=== PATIENT | male | born 1975 | race Caucasian/White ===

== ENCOUNTER 2023-05-01 13:45 | Inpatient (IN) | payer SELFPAY ==
[2023-05-01 13:45] VITALS: BP 138/100; PULSE 81; RESP 18; TEMP 36.2; O2SAT 96; BMI 28.8
[2023-05-01 15:01] LABS: Absolute Lymphocyte Count 4.09 X10^3/uL (0.83-4.51); Absolute Neutrophil Count 5.4 X10^3/uL (2.0-7.7); Basophil# 0.06 X10^3/uL; Basophil% 0.6 % (0-1); Eosinophil# 0.23 X10^3/uL; Eosinophils% 2.2 % (0-5); Hematocrit 53.2 % (40-54); Lymphocyte # 4.09 X10^3/ul (0.83-4.51); Lymphocyte % 39.3 % (19-41); Mean Corp Hgb Conc 34.2 g/dL (32-36); Mean Corpuscular Hgb 31.5 pg (27.0-32.0); Mean Corpuscular Volume 92.2 fL (80-94); Monocyte# 0.66 X10^3/uL; Monocyte% 6.3 % (0-10); NRBC Flagged by Analyzer 0 % (0-5); Neutrophil # 5.35 X10^3/uL (2.7-7.7); Neutrophil % 51.4 % (47-70); Platelet Count 196 K/mm3 (150-450); RBC Distribution Width CV 11.8 % (11.6-14.6); RBC Distribution Width SD 39.8 fl (35.1-43.9); Red Blood Count 5.77 M/mm3 (4.6-6.2); White Blood Count 10.4 K/mm3 (4.4-11.0)
[2023-05-01 15:09] LABS: Hemoglobin 18.2 g/dL (13.0-16.5)
[2023-05-01 15:10] LABS: Anion Gap 6 (5-15); BUN 16 mg/dL (7-18); BUN/Creat Ratio 17.6 RATIO (10-20); Calcium,Total 9.9 mg/dL (8.5-10.1); Chloride 103 mmol/L (98-107); Creatinine, Serum 0.91 mg/dL (0.70-1.30); EST Glomerular Filtration Rate 95 mL/min (>60); Est Glom Filt Rate - Afr Amer 116 mL/min (>60); Estimated Creatinine Clearance 84.93 ml/min; Glucose 102 mg/dL (74-106); Potassium 4.2 mmol/L (3.5-5.1); Sodium Level 134 mmol/L (136-145)
--- NOTE | 2023-05-01 15:10 | EX.ED.SAOD ---
HPI History of Present Illness Chief Complaint: Substance Abuse Detail of Chief Complaint: Requesting detox from fentanyl Informant: patient Narrative Narrative: Patient presents to the emergency department requesting detox from fentanyl. Patient states that he last used 24 hours ago. Patient states that he normally uses 1-1/2 to 2 g a day. Normally uses via the IV route. Currently complains of a runny nose and some nausea. He is never gone through detox before. He has been using for about a year. Denies recent illness otherwise. PFSH PFSH Allergy/AdvReac Type Severity Reaction Status Date / Time No Known Allergies Allergy Verified 05/01/23 13:46 ROS ROS ED Review of Systems ROS Unobtainable: other Constitutional Constitutional ED: Reports lethargy and other Details: Rhinorrhea ; Denies chills, fever(s), sweats or weight loss Eyes Eyes: Denies blurry vision, change in vision or diplopia ENT ENT ED: Reports rhinorrhea; Denies sore throat Cardiovascular Cardiovascular: Denies chest pain, orthopnea or racing heartbeat Respiratory/Chest Respiratory/Chest: Reports dyspnea and dyspnea on exertion; Denies cough, orthopnea or sputum Gastrointestinal Gastrointestinal: Denies abdominal pain, diarrhea, nausea or vomiting Genitourinary Genitourinary ED: Denies dysuria, hematuria or urinary frequency Musculoskeletal Musculoskeletal: Denies arthralgias, back pain, myalgias or neck pain Integumentary Denies abscess, Abrasions or rash Neurologic Neurologic: Denies headache(s) or weakness Psychiatric Psychiatric: Denies anxiety, depression or suicidal thoughts Endocrine Endocrinology: Denies polydipsia, polyphagia or polyuria Hematologic/Lymphatic Hematologic/Lymphatic: Denies easy bleeding, easy bruising or lymphadenopathy Allergic/Immunologic Allergic/Immunologic ED: Denies mouth swelling, tongue swelling or urticaria EXAM Physical Exam Const Vital Signs: 05/01/23 13:45 Temperature 97.1 F L Temperature Source Temporal Pulse Rate 81 Respiratory Rate 18 Blood Pressure 138/100 H Blood Pressure Mean 112 Pulse Ox 96 Oxygen Delivery Method Room Air Positive well nourished and well developed General Appearance ED: well developed and NAD HEENT Reports TM's clear and moist mucous membranes normocephalic and atraumatic; Negative for trauma or tenderness Tympanic Membrane ED: Yes TM's clear Eyes PERRL and EOMs intact bilaterally General Eye ED: Negative for pale conjunctiva or scleral icterus Neck no lymphadenopathy, supple and no JVD General: Negative for tenderness Chest Wall inspection of chest normal and palpation of chest normal Chest: Negative for tenderness Resp normal respiratory effort and clear to auscultation bilaterally Effort and Inspection: Negative for respiratory distress or pain with movement Auscultation: Negative for rhonchi, wheezes or diminished lung sounds Cardio regular rate, regular rhythm, S1 normal heart sound, S2 normal heart sound and no murmurs Peripheral Pulses: pulses 2+ throughout GI normal to inspection, nondistended, normoactive bowel sounds, soft to palpation, non-tender, non-distended and no masses Back/Spine no CVA tenderness and no thoracic nor lumbar tenderness Extremity normal to inspection General Extremety ED: Negative for edema General Extremity: Negative for edema Neuro oriented x3, CN's II-XII intact bilaterally, no sensory deficits noted and gait normal Sensorium / Orientation: awake, alert, oriented to person, oriented to place and oriented to time Motor Exam: strength 5/5 throughout and strength abnormal Psych mental status grossly normal Skin no rashes or lesions noted and no wounds MDM MDM MDM Narrative Medical decision making narrative: Patient presents requesting detox from fentanyl. Will obtain basic lab work and toxicology screen as well as alcohol screen. Case will be discussed with hospitalist evaluate patient for admission Lab Data Attestation: I reviewed the patient's lab results. Labs: Laboratory Results - last 24 hr 05/01/23 05/01/23 14:45 14:45 WBC 10.4 RBC 5.77 Hgb 18.2 H* Hct 53.2 MCV 92.2 MCH 31.5 MCHC 34.2 RDW Std Deviation 39.8 RDW Coeff of Daron 11.8 Plt Count 196 MPV 9.0 Immature Gran % (Auto) 0.200 Neut % (Auto) 51.4 Lymph % (Auto) 39.3 [place] % (Auto) 6.3 Eos % (Auto) 2.2 Baso % (Auto) 0.6 Absolute Neuts (auto) 5.4 Absolute Lymphs (auto) 4.09 Nucleated RBC % 0 Diff Path Review May foll Ur Drug Screen Comment Discharge Plan Triage Chief Complaint: Substance Abuse ED Provider: Boyd Mike Dx/Rx/DC Orders Clinical Impression: Opiate withdrawal, Desire for detoxification Primary Care Provider: Care Physician,No Primary Referrals: Care Physician,No Primary [Primary Care Provider] - Disposition Disposition: Acute Care Hospital [facility]
--- NOTE | 2023-05-01 15:13 | PCM.HP.STD ---
HPI - General General Date of Admission: 05/01/23 Date of Service: 05/01/23 HPI Narrative SCOOBY HINOJOSA, is a 48 M with a PMH as outlined who presents via the ED on 05/01/2023 for detox from fentanyl. His last use was 24 hours prior to admission. He uses about 1-2 grams daily and normally uses it IV. He complained of nausea and runny nose at time of review. He had no other symptoms and review of systems was otherwise negative. Vitals in the ED were BP of 138/100, SD of 81, RR of 18 and temp of 97.1F. He was saturating at 96% on room air. CBC was significant for hemoglobin of 18.2 but was otherwise normal. Chemistry was also largely unremarkable. Urine tox was pending. He has been admitted to be managed for acute opioid withdrawal. [facility] Medical History no medical history Home Medications NK 05/01/23 [History Last Taken Unknown] Allergy/AdvReac Type Severity Reaction Status Date / Time No Known Allergies Allergy Verified 05/01/23 13:46 Family History no significant family his Social History Smoking Status: Current some day smoker tobacco type: cigarettes ROS Constitutional Constitutional: Denies anorexia, chills, fatigue, fever(s), malaise or weakness Eyes Eyes: Denies change in vision ENT HEENT: Denies dysphagia or headache(s) Cardiovascular Cardiovascular: Denies dyspnea on exertion, edema, lightheadedness, orthopnea, palpitations or rapid heart rate Respiratory/Chest Respiratory/Chest: Reports cough and productive cough; Denies hemoptysis or shortness of breath at rest Gastrointestinal Gastrointestinal: Denies abdominal pain, constipation, diarrhea, dyspepsia, nausea or vomiting Genitourinary Genitourinary: Denies burning urination or dysuria Musculoskeletal Musculoskeletal: Denies arthralgias, joint pain or joint stiffness Neurologic Neurologic: Denies confusion, dizziness, focal weakness, headache(s) or seizures Psychiatric Psychiatric: Denies anxiety or depression Endocrine Endocrinology: Denies change in body appearance Hematologic/Lymphatic Hematologic/Lymphatic: Denies anemia Vital Signs Vital Signs Vital Signs: 05/01/23 13:45 Temperature 97.1 F L Temperature Source Temporal Pulse Rate 81 Respiratory Rate 18 Blood Pressure 138/100 H Blood Pressure Mean 112 Pulse Ox 96 Oxygen Delivery Method Room Air Weight Weight: 168 lb Body Mass Index (BMI) 28.8 Physical Exam Const alert, oriented x3 and no apparent distress General Appearance: cooperative HEENT normocephalic, head/scalp atraumatic, hearing grossly normal bilaterally and moist oral mucous membranes Mouth: oral and palatal mucosa normal Eyes PERRL and EOMs intact bilaterally Neck no lymphadenopathy, supple and no JVD Resp normal respiratory effort, no retractions, no use of accessory muscles and clear to auscultation bilaterally Cardio regular rate, regular rhythm, S1 normal heart sound, S2 normal heart sound and no murmurs GI normal to inspection, nondistended, normoactive bowel sounds, soft to palpation, non-tender and non-distended Extremity normal to inspection, full ROM and no clubbing, cyanosis or edema Neuro oriented x3, CN's II-XII intact bilaterally, moves all extremities and no focal motor deficits Sensorium / Orientation: awake and alert Motor Exam: strength 5/5 throughout Psych affect normal Results Lab / Micro Data Result Diagrams: 05/01/23 14:45 05/01/23 14:45 Labs: Laboratory Results - last 24 hr 05/01/23 14:45: WBC 10.4, RBC 5.77, Hgb 18.2 H*, Hct 53.2, MCV 92.2, MCH 31.5, MCHC 34.2, RDW Std Deviation 39.8, RDW Coeff of Daron 11.8, Plt Count 196, MPV 9.0, Immature Gran % (Auto) 0.200, Neut % (Auto) 51.4, Lymph % (Auto) 39.3, [place] % (Auto) 6.3, Eos % (Auto) 2.2, Baso % (Auto) 0.6, Absolute Neuts (auto) 5.4, Absolute Lymphs (auto) 4.09, Nucleated RBC % 0, Diff Path Review March05/01/23 14:45: Sodium 134 L, Potassium 4.2, Chloride 103, Carbon Dioxide 25.0, Anion Gap 6, BUN 16, Creatinine 0.91, Estim Creat Clear Calc 84.93, Est GFR (MDRD) Af Amer 116, Est GFR (MDRD) Non-Af 95, BUN/Creatinine Ratio 17.6, Glucose 102, Calcium 9.9 05/01/23 14:45: Ur Drug Screen Comment Assessment & Plan Assessment/Plan (1) Opiate withdrawal: PLAN: Plan #Acute opioid withdrawal admit to med surg urine tox pending opioid withdrawal protocol with buprenorphine adjunctive meds for symptomatic relief DVT prophylaxis; low risk, encourage to ambulate Charges/Coding Visit Charges Inpatient E&M: 85923 Init Hosp L3
[2023-05-01 15:16] LABS: Amphetamine Urine VISTA NEGATIVE (<1000 ng/mL); Barbiturate Urine VISTA NEGATIVE (< 200 ng/mL); Benzodiazepine Urine VISTA NEGATIVE (< 200 ng/mL); Cocaine Urine VISTA NEGATIVE (< 300 ng/mL); Ecstacy Urine VISTA NEGATIVE (< 500 ng/mL); Methadone Urine VISTA NEGATIVE (< 300 ng/mL); PCP Urine VISTA NEGATIVE (< 25 ng/mL); THC Urine VISTA NEGATIVE (< 50 ng/mL); Vista UDS pH Range 6
[2023-05-01 15:22] LABS: Alcohol, Blood (Medical)-Serum < 3.0 mg/dL
--- NOTE | 2023-05-01 15:45 | NURSING ---
MED SURG KORAM OPIATE WITHDRAWAL, FENTENYL DETOX
[2023-05-01 16:01] VITALS: BP 145/95; PULSE 75; RESP 18; TEMP 36.5; O2SAT 100
[2023-05-01 17:08] VITALS: RESP 16
[2023-05-01 18:38] VITALS: BMI 27.9
[2023-05-01 18:44] VITALS: BP 142/95; PULSE 72; RESP 16; TEMP 36.8; O2SAT 100
[2023-05-01 19:43] VITALS: BP 119/89; PULSE 66; RESP 16; TEMP 36.5; O2SAT 95
[2023-05-01] MEDS: Buprenorphine HCl 2 MG TAB.SUBL SL (20:00)
[2023-05-01] MEDS: Dicyclomine 10 MG Capsule 20 MG PO (20:01)
[2023-05-01] MEDS: cloNIDine HCl 0.1 MG Tablet PO (20:01)
[2023-05-01] MEDS: Ondansetron 8 MG Tablet PO (20:01)
[2023-05-01] MEDS: hydrOXYzine PAM 25 MG Capsule 50 MG PO (20:01)
[2023-05-01] MEDS: traZODone 100 MG Tablet PO (21:02)
[2023-05-01] MEDS: Methocarbamol 750 MG Tablet 1500 MG PO (21:03)
[2023-05-02 04:35] VITALS: BP 97/64; PULSE 56; RESP 14; TEMP 36.4; O2SAT 92
[2023-05-02] MEDS: Buprenorphine HCl 2 MG TAB.SUBL SL ×3 (04:35→21:25)
[2023-05-02] MEDS: Dicyclomine 10 MG Capsule 20 MG PO ×3 (04:42→18:13)
[2023-05-02] MEDS: Ondansetron 8 MG Tablet PO ×2 (06:57→18:13)
[2023-05-02] MEDS: Gabapentin 300 MG Capsule PO (07:24)
--- NOTE | 2023-05-02 11:13 | ADDICTION ---
This marketing writer met with PT to conduct ASAM, MSE, AUDIT, DUDIT assessments and to plan for d/c. PT A+Ox4 and participated actively. All assessments completed and placed in PT's chart. PT is unsure about plans to f/u with outpatient treatment services and we will continue to discuss tomorrow. PT did not indicate a need for transportation post d/c from [facility].
[2023-05-02 13:34] LABS: Pathologist Review Reviewed
[2023-05-02 13:50] VITALS: BP 127/77; PULSE 58; RESP 15; TEMP 37.1; O2SAT 94
--- NOTE | 2023-05-02 14:21 | PN_ITS ---
Subjective Subjective Patient seen and examined. He is complaining of abdominal cramping and increased sweating. He feels like he is going through active withdrawal. Review of symptoms otherwise negative. He has remained hemodynamically stable. Objective Data Objective Data Vital Signs: Vital Signs Temp Pulse Resp BP Pulse Ox O2 Del Method 98.8 F 58 L 15 127/77 H 94 Room Air 05/02/23 13:50 05/02/23 13:50 05/02/23 13:50 05/02/23 13:50 05/02/23 13:50 05/02/23 13:50 Oxygen Delivery Method Room Air Weight: 163 lb Body Mass Index (BMI) 27.9 Intake & Output: Intake and Output for Last 24 Hours 04/30/23 05/01/23 05/02/23 23:59 23:59 23:59 Intake Total 450 / 450 Balance 450 / 450 Lab / Micro Data Result Diagrams: 05/01/23 14:45 05/01/23 14:45 Labs: Laboratory Results - last 24 hr 05/01/23 14:45: WBC 10.4, RBC 5.77, Hgb 18.2 H*, Hct 53.2, MCV 92.2, MCH 31.5, MCHC 34.2, RDW Std Deviation 39.8, RDW Coeff of Daron 11.8, Plt Count 196, MPV 9.0, Immature Gran % (Auto) 0.200, Neut % (Auto) 51.4, Lymph % (Auto) 39.3, [place] % (Auto) 6.3, Eos % (Auto) 2.2, Baso % (Auto) 0.6, Absolute Neuts (auto) 5.4, Absolute Lymphs (auto) 4.09, Nucleated RBC % 0, Diff Path Review Reviewed 05/01/23 14:45: Sodium 134 L, Potassium 4.2, Chloride 103, Carbon Dioxide 25.0, Anion Gap 6, BUN 16, Creatinine 0.91, Estim Creat Clear Calc 84.93, Est GFR (MDRD) Af Amer 116, Est GFR (MDRD) Non-Af 95, BUN/Creatinine Ratio 17.6, Glucose 102, Calcium 9.9 05/01/23 14:45: Ethyl Alcohol < 3.0 05/01/23 14:45: Urine Opiates Screen NEGATIVE, Urine Methadone Screen NEGATIVE, Ur Barbiturates Screen NEGATIVE, Ur Phencyclidine Scrn NEGATIVE, Ur Amphetamines Screen NEGATIVE, MDMA (Ecstasy) Screen NEGATIVE, U Benzodiazepines Scrn NEGATIVE, Urine Cocaine Screen NEGATIVE, U Cannabinoids Screen NEGATIVE, Ur Drug Screen Comment Physical Exam Const alert, oriented x3 and no apparent distress General Appearance: cooperative HEENT normocephalic, head/scalp atraumatic, hearing grossly normal bilaterally and moist oral mucous membranes Eyes PERRL and EOMs intact bilaterally Neck no lymphadenopathy, supple and no JVD Lymph Lymphatic: no lymphadenopathy noted Resp normal respiratory effort, normal air movement, no retractions, no use of accessory muscles and clear to auscultation bilaterally Cardio regular rate, regular rhythm, S1 normal heart sound, S2 normal heart sound and no murmurs GI normal to inspection, nondistended, normoactive bowel sounds, soft to palpation, non-tender and non-distended Extremity normal to inspection, full ROM, normal capillary refill and no clubbing, cyanosis or edema Skin General Skin Exam: no breakdown Neuro oriented x3, CN's II-XII intact bilaterally, moves all extremities and no focal motor deficits Sensorium / Orientation: awake and alert Motor Exam: strength 5/5 throughout Psych thought process normal, cooperative and affect normal Appearance: appropriate Assessment & Plan Assessment/Plan (1) Opiate withdrawal: PLAN: Plan #Acute opioid withdrawal * on opioid withdrawal protocol with buprenorphine * urine tox negative * opioid withdrawal protocol with buprenorphine * adjunctive meds for symptomatic relief * DVT prophylaxis; low risk, encourage to ambulate Charges/Coding Visit Charges Inpatient E&M: 36344 Subs Hosp L2
[2023-05-02] MEDS: Methocarbamol 750 MG Tablet 1500 MG PO (15:35)
[2023-05-02 18:15] VITALS: BP 137/96; PULSE 70; RESP 18; TEMP 36.6; O2SAT 96
[2023-05-02] MEDS: traZODone 100 MG Tablet PO (21:32)
[2023-05-02 21:44] VITALS: BP 134/84; PULSE 62; RESP 18; TEMP 36.8; O2SAT 94
[2023-05-03 03:44] VITALS: BP 151/95; PULSE 85; RESP 18; TEMP 36.5; O2SAT 94
[2023-05-03] MEDS: Ondansetron 8 MG Tablet PO (03:47)
[2023-05-03] MEDS: Buprenorphine HCl 2 MG TAB.SUBL SL ×3 (04:19→20:11)
[2023-05-03] MEDS: Dicyclomine 10 MG Capsule 20 MG PO (08:45)
[2023-05-03 09:44] VITALS: BP 139/85; PULSE 68; RESP 16; TEMP 36.9; O2SAT 95
--- NOTE | 2023-05-03 11:02 | ADDICTION ---
Pt agreed to follow up with [facility] in [facility] for outpatient treatment.
--- NOTE | 2023-05-03 11:09 | PCM.PROGNOTE ---
Subjective Subjective Patient seen and examined. He said he had been retching. He is having abdominal cramps. Review of systems is otherwise negative Objective Data Objective Data Vital Signs: Vital Signs Temp Pulse Resp BP Pulse Ox O2 Del Method 98.4 F 68 16 139/85 H 95 Room Air 05/03/23 09:44 05/03/23 09:44 05/03/23 09:44 05/03/23 09:44 05/03/23 09:44 05/03/23 09:44 Oxygen Delivery Method Room Air Weight: 163 lb Body Mass Index (BMI) 27.9 Intake & Output: Intake and Output for Last 24 Hours 05/01/23 05/02/23 05/03/23 23:59 23:59 23:59 Intake Total 450 / 650 440 / 440 Balance 450 / 650 440 / 440 Lab / Micro Data Result Diagrams: 05/01/23 14:45 05/01/23 14:45 Labs: Laboratory Results - last 24 hr 05/01/23 14:45: Diff Path Review Reviewed Physical Exam Const alert, oriented x3 and no apparent distress General Appearance: cooperative HEENT normocephalic, head/scalp atraumatic, hearing grossly normal bilaterally and moist oral mucous membranes Eyes PERRL and EOMs intact bilaterally Neck no lymphadenopathy, supple and no JVD Lymph Lymphatic: no lymphadenopathy noted Resp normal respiratory effort, normal air movement, no retractions, no use of accessory muscles and clear to auscultation bilaterally Cardio regular rate, regular rhythm, S1 normal heart sound, S2 normal heart sound and no murmurs GI normal to inspection, nondistended, normoactive bowel sounds, soft to palpation, non-tender and non-distended Extremity normal to inspection, full ROM, normal capillary refill and no clubbing, cyanosis or edema Skin General Skin Exam: no breakdown Neuro oriented x3, CN's II-XII intact bilaterally, moves all extremities and no focal motor deficits Sensorium / Orientation: awake and alert Motor Exam: strength 5/5 throughout Psych thought process normal, cooperative and affect normal Appearance: appropriate Assessment & Plan Assessment/Plan (1) Opiate withdrawal: PLAN: Plan #Acute opioid withdrawal on opioid withdrawal protocol with buprenorphine urine tox negative opioid withdrawal protocol with buprenorphine adjunctive meds for symptomatic relief DVT prophylaxis; low risk, encourage to ambulate Charges/Coding Visit Charges Inpatient E&M: 24017 Subs Hosp L2
[2023-05-03] MEDS: proMETHazine 25 MG Tablet 12.5 MG PO (12:08)
--- NOTE | 2023-05-03 13:42 | CASEMGMT ---
Social Work SW introduced self and role to patient. SW discussed self-pay status and provided patient with Medicaid application, resource lists, pcp info, and assistance information. Pt reports he is not feeling well and SW advised patient to review when he is feeling better and ask for SW if he has any further questions. Ghazal Shaw DEPARTURE CLERK, [employer]
[2023-05-03 15:40] VITALS: BP 146/99; PULSE 76; RESP 16; TEMP 37.1; O2SAT 96
[2023-05-03] MEDS: Metoclopramide 5 MG TABLET PO (16:53)
[2023-05-03 20:20] VITALS: BP 155/97; PULSE 69; RESP 16; TEMP 36.8; O2SAT 95
[2023-05-04] MEDS: proMETHazine 25 MG Tablet 12.5 MG PO (02:11)
[2023-05-04 03:43] VITALS: BP 154/96; PULSE 66; RESP 18; TEMP 36.6; O2SAT 95
[2023-05-04 08:55] VITALS: BP 144/92; PULSE 74; RESP 16; TEMP 36.6; O2SAT 96
[2023-05-04] MEDS: Buprenorphine HCl 2 MG TAB.SUBL SL (08:58)
[2023-05-04] MEDS: Ondansetron 8 MG Tablet PO (08:58)
--- NOTE | 2023-05-04 09:30 | DS.PCM_ITS ---
Providers Date of Admission: 05/01/23 Date of Discharge: 05/04/23 Primary Care Physician: No Primary Care Phys Reason For Visit: ACUTE OPIOID WITHDRAWAL Diagnosis Discharge Diagnosis (1) Opiate withdrawal: Status: Acute Code(s): F11.93 - Opioid use, unspecified with withdrawal Plan #Acute opioid withdrawal * on opioid withdrawal protocol with buprenorphine * urine tox negative * opioid withdrawal protocol with buprenorphine * adjunctive meds for symptomatic relief * DVT prophylaxis; low risk, encourage to ambulate Medications at Discharge Home Medications NK 05/01/23 Hospital Course Operations None Procedures None Summary of Care Provided Minutes Spent on Discharge: 45 Hospital Course: SCOOBY HINOJOSA, is a 48 M with a PMH as outlined who presents via the ED on 05/01/2023 for detox from fentanyl. His last use was 24 hours prior to admission. He uses about 1-2 grams daily and normally uses it IV. He complained of nausea and runny nose at time of review. He had no other symptoms and review of systems was otherwise negative. Vitals in the ED were BP of 138/100, NE of 81, RR of 18 and temp of 97.1F. He was saturating at 96% on room air. CBC was significant for hemoglobin of 18.2 but was otherwise normal.? Chemistry was also largely unremarkable.? Urine tox was negative.? He was admitted to be managed for acute opioid withdrawal. He was started on opioid withdrawal protocol with buprenorphine. He tolerated the 3 day detox process well. He was discharged home on . He is to follow up with his PCP within 1-2 weeks. Patient seen and examined prior to discharge. He had no active complaints and had an uneventful night. Review of systems otherwise negative. Labs and vitals reviewed. Home medications reviewed and reconciled. Physical Exam Const alert, oriented x3 and no apparent distress General Appearance: cooperative, comfortable and well kempt HEENT normocephalic, head/scalp atraumatic, hearing grossly normal bilaterally and moist oral mucous membranes Eyes PERRL and EOMs intact bilaterally Neck no lymphadenopathy, supple and no JVD Lymph Lymphatic: no lymphadenopathy noted Resp normal respiratory effort, normal air movement, no retractions, no use of accessory muscles and clear to auscultation bilaterally Cardio regular rate, regular rhythm, S1 normal heart sound, S2 normal heart sound and no murmurs GI normal to inspection, nondistended, normoactive bowel sounds, soft to palpation, non-tender and non-distended Extremity normal to inspection, full ROM, normal capillary refill and no clubbing, cyanosis or edema Skin no rashes or lesions noted General Skin Exam: no breakdown Neuro oriented x3, CN's II-XII intact bilaterally, moves all extremities and no focal motor deficits Sensorium / Orientation: awake and alert Motor Exam: strength 5/5 throughout Psych thought process normal, cooperative and affect normal Appearance: appropriate Weight / BMI Weight Weight: 163 lb Body Mass Index (BMI) 27.9 ABG / Lab / Microbiology Data Result Diagrams: 05/01/23 14:45 05/01/23 14:45 D/C Instructions Discharge Diet: Low fat / Low cholesterol Discharge Activity: Return to Normal Activity Weight Bearing Status: Weight bearing as tolerated Call your doctor if you observe: Fever of 101 or Higher, Shortness of breath, Dizziness, Swelling in the ankles and Chest pain Meaningful Use Info Meaningful Use Diagnoses (Choose all that apply): None applicable Discharge Plan Admission Admit Date/Time: 05/01/23 15:19 Primary Reason for Your Visit: acute opiate withdrawal Attending Provider: Lanette Garcia Primary Care Provider: Care Physician,No Primary Instructions Patient Instructions: ED Opioid Withdrawal Discharge Orders/Prescriptions Prescriptions: No Action NK Referrals / Follow Up: Care Physician,No Primary [Primary Care Provider] - Disposition Disposition (needs filled in before D/C Order can be placed): Home, Self Care Charges/Coding Visit Charges Inpatient E&M: 92520 Disch Hosp >30min
--- NOTE | 2023-05-04 12:00 | NURSING ---
received call from pt's after she talked with housesmith. explained to process of the [facility] program including scoring system, taper medication, PRN medications, and typical process of ordering meals with these patients. verbalized frustration with patient's behavior and states [facility] did not give him any medications. Again explained to process of taper and PRN medications. Explained to this is a voluntary program and patient's desire for engagement in the program is completely patient driven and voluntary. Informed we are unable to force patient to communicate with staff including discharge planning staff. expressed understanding and again verbalized frustration with patient. No further needs verbalized from pt's . to discuss with pcu charge nurse.
== END 2023-05-04 11:16 | disposition home or self-care (01) | DRG 897 ==
LOC: ED 15:24 → PCU 16:45
PROVIDERS: Admitting Provider Student in an Organized Health Care Education/Training Program; Emergency Provider Emergency Medicine; Visit Provider Student in an Organized Health Care Education/Training Program
DX: F11.23 Opioid dependence with withdrawal (principal); F17.210 Nicotine dependence, cigarettes, uncomplicated
CPT/HCPCS: 36415; 80048; 80307; 82077; 85025; 99283

== ENCOUNTER 2023-07-19 17:06 | Emergency (ER) | payer MEDICAID, SELFPAY ==
[2023-07-19 17:07] VITALS: BP 150/93; PULSE 46; RESP 16; TEMP 36.6; O2SAT 99; BMI 27.4
[2023-07-19] MEDS: Ondansetron ODT 4 MG Tablet PO (17:29)
[2023-07-19] MEDS: 0.9% Normal Saline 1,000 ML 1000 ML IV (18:31)
[2023-07-19] MEDS: Metoclopramide 10 MG/2 ML Vial IV (18:31)
[2023-07-19 18:32] LABS: Amphetamine Urine VISTA NEGATIVE (<1000 ng/mL); Barbiturate Urine VISTA NEGATIVE (< 200 ng/mL); Benzodiazepine Urine VISTA NEGATIVE (< 200 ng/mL); Cocaine Urine VISTA POSITIVE (< 300 ng/mL); Ecstacy Urine VISTA NEGATIVE (< 500 ng/mL); Methadone Urine VISTA NEGATIVE (< 300 ng/mL); PCP Urine VISTA NEGATIVE (< 25 ng/mL); THC Urine VISTA NEGATIVE (< 50 ng/mL); Vista UDS pH Range 6
[2023-07-19 18:40] LABS: Bacteria 0 SEEN /hpf (None Seen); Color, Urine Yellow (Yellow); Glucose, Dipstick Normal (Normal); Leukocyte Esterase-Dipstick Negative /ul (Negative); Mucous, Urine 0 SEEN /hpf (<or=2+); Nitrite-Dipstick Negative (Negative); Occult Blood-Urine Negative /ul (Negative); Protein-Dipstick 15 mg/dl (Negative); Red Blood Cells-Urine 0 SEEN /hpf (0-5); Squamous Epithelial Cells - UA 0 SEEN /hpf (0-5); Urine Bilirubin Dipstick 1 mg/dL (Negative); Urine Clarity Clear (Clear); Urine Urobilinogen 8 mg/dl (Normal); White Blood Cells 0 SEEN /hpf (0-5)
[2023-07-19 18:41] LABS: Ketone-Dipstick 150 mg/dl (Negative)
--- NOTE | 2023-07-19 18:43 | EDS_ITS ---
HPI History of Present Illness Chief Complaint: Substance Abuse Informant: patient Narrative Narrative: Patient is requesting detox from fentanyl/heroin. Patient does inject. Mostly in the arms. Although he has had abscesses in the past none of recent. No history of valvular disease. He used to use these for years. But he was clean for 6 years. In November he started using again and he does not know why. He went through detox couple months ago. He presented here for detox. However, when I talk to him his last use was 3 days ago on Saturday. He has been seeing an outpatient clinic every day that has been giving him Suboxone and comfort meds that include Zofran and other meds that he does not know what they are. He has had some mild diarrhea he has had nausea and he has vomited some bile. But no other vomiting. He is still urinating normally. He states he just does not feel well. But he is already 3 days into his detox with 3 days of Suboxone. He does not know the dose that he has been given. [facility] Medical History Anxiety Depression Hepatitis Hypertension Smoker Substance abuse Home Medications promethazine 25 mg tablet 25 mg PO Q6H PRN PRN Nausea #10 TABLETS 07/19/23 [Rx Last Taken Unknown] Allergy/AdvReac Type Severity Reaction Status Date / Time No Known Allergies Allergy Verified 07/19/23 17:07 Social History Smoking Status: Current every day smoker tobacco type: cigarettes ROS ROS ED ROS Narrative A complete review of systems was performed and is negative except as documented in the history of present illness. Some specific details below. Constitutional: No recent fevers he does have some myalgias but these are typical with withdrawal. EYE: No visual complaints or pain. ENT: No difficulty swallowing. No swelling. No pain. CV: No chest pain or palpitations. Respiratory: No dyspnea. No hemoptysis. No difficulty taking breaths. GI: Please see history of present illness. : No frequency dysuria or hematuria. Musculoskeletal: No recent trauma. No pains. Skin: No rash. Nondiaphoretic. Neuro: No weakness or numbness. Endocrine: No polyuria or polydipsia. EXAM Physical Exam Narrative Exam Narrative: CONSTITUTIONAL: Patient is nontoxic in appearance. The patient looks comfortable. HEENT: No notable trauma. Mucous membranes still moist. No sinus tenderness. No indication of pain with swallowing. EYES: No conjunctival injection. No proptosis. CARDIOVASCULAR: Regular rate. Regular rhythm. No notable murmur heard anywhere across the precordium. No JVD. RESPIRATORY: No respiratory distress. Breathing is unlabored. No wheezes. No rhonchi. No rales. No pain with a deep breath. GASTROINTESTINAL: Not distended. Bowel sounds are normal. No tenderness. No guarding. No rebound. No palpable mass. No bruit. GENITOURINARY: No tenderness over the bladder. No CVA tenderness. MUSCULOSKELETAL: Atraumatic. No peripheral edema. No cord. No tenderness along the deep venous system. No asymmetry. NEUROLOGICAL: Patient is alert and appropriate. No focal deficit noted. SKIN: No noted rashes. No diaphoresis. I can see some small track hoyt in his antecubital fossa's but none of these look acutely inflamed or infected in any way. PSYCHIATRIC: Patient is calm. Mood is appropriate. Const Vital Signs: 07/19/23 17:07 Temperature 97.8 F Temperature Source Temporal Pulse Rate 46 L Respiratory Rate 16 Blood Pressure 150/93 H Blood Pressure Mean 112 Pulse Ox 99 MDM MDM MDM Narrative Medical decision making narrative: I discussed the case initially with her hospitalist. He agrees that this patient really does not meet typical criteria for detox. We are really to the point of symptom control. He is already set up with a program that is giving him Suboxone and arranging long-term care. We will get him medications IV fluids. I will check some blood work to make sure there is no marked abnormalities. I checked with the patient. He is drink Gatorade. He was resting. He is feeling. Find out from the patient that he was prescribed medicines but could not get them picked up or filled at [facility] for some reason. I will see if I can send him home with some Phenergan. I will put a clonidine patch to help him over the next 24 hours. Patient CBC shows mild elevation of his hemoglobin. His white count is up but he has no fevers or symptoms of infection this is likely stress demargination. Electrolytes show minimally low sodium and chloride. Creatinine is preserved. Glucose is minimally up at 123. Patient's liver function test are normal. Patient's alcohol is negative. Patient's urine shows ketones otherwise normal. Patient's urine toxicology shows cocaine. Lab Data Attestation: I reviewed the patient's lab results. Labs: Laboratory Results - last 24 hr 07/19/23 07/19/23 17:35 18:20 WBC 20.0 H RBC 5.30 Hgb 16.9 H Hct 47.2 MCV 89.1 MCH 31.9 MCHC 35.8 RDW Std Deviation 38.9 RDW Coeff of Daron 12.0 Plt Count 243 MPV 9.5 Immature Gran % (Auto) 0.400 Neut % (Auto) 75.6 H Lymph % (Auto) 17.8 L [place] % (Auto) 6.1 Eos % (Auto) 0.0 Baso % (Auto) 0.1 Absolute Neuts (auto) 15.1 H Absolute Lymphs (auto) 3.56 Nucleated RBC % 0 Sodium 132 L Potassium 3.8 Chloride 97 L Carbon Dioxide 28.0 Anion Gap 7 BUN 26 H Creatinine 0.98 Estim Creat Clear Calc 81.93 Est GFR (MDRD) Af Amer 106 Est GFR (MDRD) Non-Af 88 BUN/Creatinine Ratio 26.6 H Glucose 123 H Calcium 9.3 Total Bilirubin 0.90 AST 27 ALT 37 Alkaline Phosphatase 92 Total Protein 7.4 Albumin 3.5 Globulin 3.9 Albumin/Globulin Ratio 0.9 Urine Color Yellow Urine Clarity Clear Urine pH 6.0 Ur Specific [place] 1.020 Urine Protein 15 H Urine Glucose (UA) Normal Urine Ketones 150 A* Urine Occult Blood Negative Urine Nitrite Negative Urine Bilirubin 1 H Urine Urobilinogen 8 H Ur Leukocyte Esterase Negative Urine RBC 0 SEEN Urine WBC 0 SEEN Ur Squamous Epith Cells 0 SEEN Urine Bacteria 0 SEEN Urine Mucus 0 SEEN Urine Opiates Screen NEGATIVE Urine Methadone Screen NEGATIVE Ur Barbiturates Screen NEGATIVE Ur Phencyclidine Scrn NEGATIVE Ur Amphetamines Screen NEGATIVE MDMA (Ecstasy) Screen NEGATIVE U Benzodiazepines Scrn NEGATIVE Urine Cocaine Screen POSITIVE H U Cannabinoids Screen NEGATIVE Ur Drug Screen Comment Ethyl Alcohol < 3.0 Discharge Plan Triage Chief Complaint: Substance Abuse ED Provider: Jose Manuel Charles Dx/Rx/DC Orders Clinical Impression: Opiate withdrawal, Nausea Instructions: ED Opiate Abuse, ED Opioid Withdrawal Prescriptions: New promethazine [promethazine] 25 mg tablet 25 mg PO Q6H PRN PRN (Reason: Nausea) Qty: 10 0RF Primary Care Provider: Care Physician,No Primary Referrals: Care Physician,No Primary [Primary Care Provider] - Activity Restrictions/Additional Instructions: Follow-up with your [facility] for continued detox Disposition Disposition: Home, Self Care
[2023-07-19 18:53] LABS: Absolute Lymphocyte Count 3.56 X10^3/uL (0.83-4.51); Absolute Neutrophil Count 15.1 X10^3/uL (2.0-7.7); Basophil# 0.02 X10^3/uL; Basophil% 0.1 % (0-1); Hematocrit 47.2 % (40-54); Hemoglobin 16.9 g/dL (13.0-16.5); Lymphocyte # 3.56 X10^3/ul (0.83-4.51); Lymphocyte % 17.8 % (19-41); Mean Corp Hgb Conc 35.8 g/dL (32-36); Mean Corpuscular Hgb 31.9 pg (27.0-32.0); Mean Corpuscular Volume 89.1 fL (80-94); Mean Platelet Vol. 9.5 fl (6.2-12.0); Monocyte# 1.22 X10^3/uL; Monocyte% 6.1 % (0-10); NRBC Flagged by Analyzer 0 % (0-5); Neutrophil # 15.13 X10^3/uL (2.7-7.7); Neutrophil % 75.6 % (47-70); Platelet Count 243 K/mm3 (150-450); RBC Distribution Width SD 38.9 fl (35.1-43.9)
[2023-07-19 19:14] LABS: Alcohol, Blood (Medical)-Serum < 3.0 mg/dL
[2023-07-19 19:33] LABS: ALB/GLOB Ratio 0.9 RATIO (0.9-2.4); AST(SGOT) 27 U/L (15-37); Alanine Aminotransfer ALT/SGPT 37 U/L (16-61); Albumin, Serum 3.5 g/dL (3.2-5.0); Alkaline Phosphatase 92 U/L (45-117); Anion Gap 7 (5-15); BUN 26 mg/dL (7-18); BUN/Creat Ratio 26.6 RATIO (10-20); Calcium,Total 9.3 mg/dL (8.5-10.1); Chloride 97 mmol/L (98-107); Creatinine, Serum 0.98 mg/dL (0.70-1.30); EST Glomerular Filtration Rate 88 mL/min (>60); Est Glom Filt Rate - Afr Amer 106 mL/min (>60); Estimated Creatinine Clearance 81.93 ml/min; Globulin 3.9 g/dL (2.2-4.2); Glucose 123 mg/dL (74-106); Potassium 3.8 mmol/L (3.5-5.1); Protein, Total 7.4 g/dL (6.4-8.2); Sodium Level 132 mmol/L (136-145)
[2023-07-19 20:08] VITALS: BP 134/76; PULSE 64; RESP 15; O2SAT 98
== END 2023-07-19 20:09 | disposition home or self-care (01) ==
PROVIDERS: Emergency Provider Emergency Medicine; Visit Provider Emergency Medicine
DX: F11.23 Opioid dependence with withdrawal (principal); R11.0 Nausea; I10 Essential (primary) hypertension; F17.210 Nicotine dependence, cigarettes, uncomplicated
CPT/HCPCS: 80053; 80307; 81001; 82077; 85025; 96361; 96374; 99283; J7030; A4216